=== PATIENT | female | born 2000 ===

== ENCOUNTER 2025-07-09 16:15 | Emergency (ER) | payer MEDICAID, SELFPAY ==
[2025-07-09 16:16] VITALS: BMI 26.6
[2025-07-09 16:42] VITALS: BP 133/85; PULSE 100; RESP 19; TEMP 37.5; O2SAT 99; BMI 24.6
--- NOTE | 2025-07-09 16:44 | XR_ITS ---
Examination: Pelvic ultrasound, transabdominal, complete Technique: Transabdominal ultrasound of the pelvis performed using grayscale imaging Date and time of exam: July 09, 2025, 1702 hours INDICATIONS: Lower abdominal pain beginning 3 days ago. FINDINGS: Uterus 7.4 cm endometrial stripe 0.3 cm No uterine mass or intrauterine gestation Right ovary 3.1 cm arterial flow Left ovary 3.0 cm arterial flow IMPRESSION: Negative study
--- NOTE | 2025-07-09 16:44 | XR_ITS ---
Examination: Abdomen sonogram, Limited Date and time of exam: July 09, 2025, 1651 hours INDICATIONS: Lower abdominal pain pelvic pain beginning 3 days ago Technique: Real-time burnette scale transabdominal sonographic images of the upper abdomen obtained. Findings: Normal gallbladder Normal common bile duct 0.3 cm Pancreatic head 1.4 cm Liver 17.9 cm fatty infiltration Normal hepatopetal portal venous flow Patent IVC IMPRESSION: Normal gallbladder Normal common bile duct Mild to moderate hepatomegaly
--- NOTE | 2025-07-09 16:45 | PD.EDRME ---
Rapid Medical Screening Exam RME Arrival date/time: 07/09/25 16:15 24-year-old female presents to the Emergency Department of complaint of right upper quadrant abdominal pain and pelvic pain Chief Complaint: Abdominal Pain Vital signs: Vital Signs Temperature 99.5 F 07/09/25 16:42 Pulse Rate 100 07/09/25 16:42 Respiratory Rate 19 07/09/25 16:42 Blood Pressure 133/85 H 07/09/25 16:42 Pulse Oximetry (%) 99 07/09/25 16:42 Oxygen Delivery Method Room Air 07/09/25 16:42 Vital signs reviewed by provider: Yes Exam: On exam well-appearing does not appear ill or toxic patient does have pain in her abdomen Clinical Impression: Lab work and imaging ordered
[2025-07-09 17:28] LABS: Collection Type, Urine Clean Catch; RBC,Urine 0 /hpf (0-3)
[2025-07-09 17:33] LABS: Basophils # (Auto) 0.0 Thou/mm3 (0.0-0.2); Basophils % (Auto) 0 % (0-2.5); Eosinophils # (Auto) 0.1 Thou/mm3 (0.0-0.5); Eosinophils % (Auto) 1 % (0-10); Hematocrit 39.7 % (36.0-46.0); Hemoglobin 12.9 g/dL (12.0-16.0); Immature Granulocytes Auto 0.04 Thou/mm3 (0.00-0.00); Lymphocytes # (Auto) 1.7 Thou/mm3 (1.0-4.8); Lymphocytes % (Auto) 24 % (10-50); Mean Corpuscular HGB Conc 32.5 g/dl (31.0-37.0); Mean Corpuscular Hemoglobin 27.9 pg (25.0-35.0); Mean Corpuscular Volume 86 fL (80-100); Monocytes # (Auto) 0.6 Thou/mm3 (0.0-0.8); Monocytes % (Auto) 9 % (0-12); Neutrophils # (Auto) 4.6 Thou/mm3 (1.8-7.7); Neutrophils % (Auto) 65 % (37-80); Nucleated Red Blood Cell # 0.00 Thou/mm3 (0.00-0.00); Nucleated Red Blood Cell % 0 /100 WBC (0); Platelet Count 203 Thou/mm3 (140-440); RDW Standard Deviation 42.9 fL (36.4-46.3); Red Blood Count 4.63 Miln/mm3 (4.00-5.20); White Blood Count 7.1 Thou/mm3 (3.6-11.0)
[2025-07-09 17:34] LABS: Bilirubin,Urine Negative (Negative); Blood,Urine 1+ (Negative); Clarity,Urine Turbid (Clear/Hazy); Color,Urine Yellow (Lt Yel-Yel); Culture Indicated,Urine Not Indicated; Glucose, Urine Negative (Negative); Ketones,Urine Negative (Negative); Leukocyte Esterase,Urine Negative (Negative); Nitrite,Urine Negative (Negative); PH,Urine 6.0 (5.0-7.0); Protein,Urine 1+ (Neg - Trace); Specific Gravity,Urine 1.032 (1.001-1.035); Squamous Epithelial Cell,Urine < 1 /hpf (0-5); Urobilinogen,Urine Negative mg/dL (0.0-1.0); WBC,Urine < 1 /hpf (0-5)
[2025-07-09 17:36] LABS: HCG Qualitative,Urine Negative
[2025-07-09 18:02] LABS: Alanine Aminotransferase 9 U/L (10-49); Albumin, Serum 4.7 gm/dL (3.5-5.0); Albumin/Globulin Ratio 1.5 (1.2-2.2); Alkaline Phosphatase 89 U/L (46-116); Anion Gap 9 (7-16); Aspartate Amino Transferase 16 U/L (0-34); BUN/Creatinine Ratio 13 Ratio (12-20); Bilirubin,Total 0.3 mg/dL (0.3-1.2); Blood Urea Nitrogen 8 mg/dL (9-23); Calcium 9.3 mg/dL (8.3-10.6); Calcium (Corrected) 9.3 mg/dL (8.5-10.1); Carbon Dioxide 29.8 mMol/L (20.0-31.0); Chloride 104 mMol/L (98-107); Creatinine (Component) 0.6 mg/dL (0.6-1.3); Estimated Creatinine Clearance 122.7 mL/min (>60); Globulin 3.1 gm/dL (2.3-3.5); Glucose 93 mg/dL (74-106); Lipase 30 U/L (12-53); Osmolality,Calculated 283 (275-295); Potassium 4.0 mMol/L (3.4-5.1); Sodium 143 mMol/L (136-145); Total Protein 7.8 gm/dL (5.7-8.2); eGFR > 60 See Note
[2025-07-09] MEDS: ACETAMINOPHEN 500 MG TABLET 1000 MG PO (18:06)
--- NOTE | 2025-07-09 18:52 | XR_ITS ---
Examination: CT abdomen with intravenous contrast CT pelvis with intravenous contrast 2-D coronal reconstructions 2-D sagittal reconstructions Date and time of exam: July 09, 2025, 2100 hours INDICATIONS: Right flank pain and cramping beginning 3 days ago. CTDI: vol (mGy) 8.51 DLP: (mGycm) 399 Technique: Multiple axial sections of the abdomen and pelvis have been obtained. 64 slice high-resolution scanner used. 3 mm axial sections have been obtained, post intravenous injection 60 cc [id number] 2-D sagittal, coronal reconstructions obtained. Low dose protocols were performed. One or more of the following dose reduction techniques were used; automated exposure control, adjustment of the mA and/or KV according to patient size, use of iterative reconstruction technique. Findings: No focal liver or splenic lesions No gallstones No pancreatic or adrenal mass No renal or ureteral calculi, no hydronephrosis Inflammatory change about the entire right and transverse colon No obstruction Appendix appears normal No bowel obstruction or diverticulitis No pelvic mass Bladder intact Osseous structures intact IMPRESSION: No renal or ureteral calculi, no hydronephrosis No CT findings of appendicitis Severe nonspecific colitis pattern involving right and transverse colon, differential would include ulcerative colitis, Crohn's disease
--- NOTE | 2025-07-09 18:54 | EKG_ITS ---
[facility] Test Date: 2025-07-09 Pat Name: JEFFREY MATHEW Department: Room: - Gender: Female Correctional Counselor: : 2000 Requested By: Christie Aaron Order Number: [id number] Reading MD: Christie Aaron Measurements Intervals Rule Rate: 89 P: 65 VT: 148 QRS: 49 QRSD: 82 T: 36 QT: 355 QTc: 433 Interpretive Statements SINUS RHYTHM No previous ECG available for comparison /store/S0/[id number]/ecg/[id number].pdf
[2025-07-09 18:56] VITALS: BP 121/83; PULSE 78; RESP 18; TEMP 36.9; O2SAT 98
[2025-07-09 19:22] VITALS: BP 125/75; PULSE 91; RESP 19; TEMP 36.9; O2SAT 100
[2025-07-09] MEDS: PIPER/TAZO INJ 4.5 GM in SODIUM CHLORIDE 0.9% (POP) 100 ML IV (21:23)
--- NOTE | 2025-07-09 22:09 | EDNOTE_ITS ---
ED Abdominal Pain RME/HPI General Chief Complaint: Abdominal Pain Stated complaint: ABD PAIN/CRAMPING X 3DAYS WITH NAUSEA Time seen by provider: 07/09/25 17:53 Arrival date/time: 07/09/25 16:15 RME / HPI RME / HPI narrative: 24-year-old female with no significant past medical history presents emergency room with 2 days of abdominal pain. Her pain is located in on the right side of her abdomen, both upper and lower quadrant associated with an episode of diarrhea this morning and nausea but no vomiting. She denied having headaches, fever, chills, chest pain, shortness of breath, vomiting, or urinary symptoms. On presentation vitals were unremarkable. Labs were also unremarkable including normal hemoglobin, no leukocytosis, normal renal function, normal liver panel, and signs of UTI on UA. Beta-hCG was negative. Pelvic ultrasound unremarkable. Abdominal ultrasound showed fatty liver but no gallbladder or CBD pathology. On exam she had palpitation in the right lower quadrant prompting a CT scan to rule out acute appendicitis. CT scan was negative for appendicitis but showed diffuse colitis, suggestive of chronic disease versus ulcer colitis. She was given a dose of TYLENOL with improvement in her pain. Given the findings, I don't feel she is needs hospital admission. Will be discharging home with TYLENOL PRN for pain. Also provided clear instructions with food map and foods to avoid. I had highly recommended close follow-up with GI for workup for inflammatory bowel disease including colonoscopy. Patient understands and agreed to the treatment plan. Recommended return to the ED if symptoms worsen or persist or new symptoms develop including worsening diarrhea, blood in the stool, dark stool, nausea or vomiting, fever or chills. Exam: On exam well-appearing does not appear ill or toxic patient does have pain in her abdomen Impression: Lab work and imaging ordered Related Data Home Medications ?Medication ?Instructions ?Recorded ?Confirmed vit no.95-ferrous 1 tab PO QDAY 01/08/2312/08 fumarate 28 mg-folic acid 800 mcg tablet () Previous Rx's ?Medication ?Instructions ?Recorded ibuprofen 800 mg tablet 800 mg PO Q6H PRN pain #120 tabs 12/27/23 lanolin 50 % topical ointment 1 applic topical TID PRN skin 12/27/23 irritation #15 tubes acetaminophen 650 mg 650 mg PO Q8H PRN fever or p ain 07/09/25 tablet,extended release (Tylenol 8 #60 tabs Hour) Allergies Allergy/AdvReac Type Severity Reaction Status Date / Time No Known Allergies Allergy Verified 07/09/25 16:19 ED Exam Narrative Physical exam: GENERAL * Normal appearing female, in mild distress secodnary to pain. HEENT * NCAT.?FRENCH. Oral mucosa is moist. Patent Nares NECK * Supple, nontender, no JVD. CHEST * RRR, no m/g/r * CTAB, no w/r/r, symmetrical expansion. ABDOMEN * Soft, flat, tender to palpation in RLQ and RUQ. No guarding/rebound tenderness/masses. * Bowel sounds presents EXTREMITIES * No edema/cyanosis.? SKIN * Warm and dry, no jaundice/rashes. NEUROMUSCULAR * No lumbar or midline, no CVA, no paraspinal muscle spasm or tenderness. * Moves all 4 extremities well, with full ROM and good CSM. * LAWLER x4, CN II-XII grossly intact. * No focal neurologic deficits. PSYCHIATRY * Normal mood and affect, cooperative, no SI or HI or hallucinations. Course Quality Measures none Orders Category Date Time Status CT Screening NOW Care 07/09/25 18:52 Completed EKG (ED ONLY) *Do not use* NOW Care 07/09/25 18:54 Completed Insert IV NOW Care 07/09/25 19:[address] abdomen pelvis w con Stat Exams 07/09/25 18:52 Completed EKG (ED Only) Stat Exams 07/09/25 18:54 Ordered US gall bladder Stat Exams 07/09/25 16:44 Completed US pelvic complete Stat Exams 07/09/25 16:44 Completed Blood Culture (Lab) Stat Lab 07/09/25 21:55 Received CBC Stat Lab 07/09/25 17:20 Completed Comprehensive Metabolic Panel Stat Lab 07/09/25 17:20 Completed HCG Qualitative,Urine Stat Lab 07/09/25 17:21 Completed Lipase Stat Lab 07/09/25 17:20 Completed UA, C/S IF [Urinalysis, C/S if Indicated] Stat Lab 07/09/25 17:21 Completed Acetaminophen Tab [Tylenol ES Tab] Med 07/09/25 16:44 Discontinued 1,000 mg PO X1 ONE Morphine* Inj Med 07/09/25 18:52 Discontinued 4 mg IM X1 PRN Ondansetron Inj [Zofran Inj] Med 07/09/25 18:52 Discontinued 4 mg IVP X1 ONE Piper/Tazo Inj [Zosyn Inj] 4.5 gm Med 07/09/25 18:54 Discontinued Sodium Chloride 0.9% (Pop) [NS 0.9% mini bag] 100 ml IV X1 Vital Signs Vital signs: Vital Signs Temperature 99.5 F 07/09/25 16:42 Pulse Rate 100 07/09/25 16:42 Respiratory Rate 19 07/09/25 16:42 Blood Pressure 133/85 H 07/09/25 16:42 Pulse Oximetry (%) 99 07/09/25 16:42 Oxygen Delivery Method Room Air 07/09/25 16:42 Abdominal Pain MDM Patient data External records reviewed:: [facility] previous records Clinical information provided by:: family Social determinants that could affect healthcare access:: substance use Patient has the following chronic illnesses:: None How is presenting disease/condition affected by chronic disease/condition?: uneffected by Evaluation data The following diagnostics were reviewed and interpreted by me:: lab results and radiology exam(s) Lab and/or radiology exams considered but not ordered:: None Interpretation Summary: Diffuse colitis Medications / Prescriptions Medications or Prescriptions considered but not ordered:: None Medication administrations:: Medication Administration History Discontinued Medications Acetaminophen (Acetaminophen 500 Mg Tablet) 1,000 mg PO X1 ONE Stop: 07/09/25 16:45 Last Admin: 07/09/25 18:06 Dose: 1,000 mg Documented By: BD Piperacillin Sod/Tazobactam (Sod 4.5 gm/ Sodium Chloride) 100 mls @ 200 mls/hr IV X1 ONE; Protocol Stop: 07/09/25 19:23 Last Infusion: 07/09/25 22:30 Dose: Infused Documented By: Admin: 07/09/25 21:23 Dose: 200 mls/hr Documented By: DANIA Morphine Sulfate (Morphine Sulf Inj 4 Mg/Ml Vial) 4 mg IM X1 PRN PRN Reason: severe abd pain Stop: 07/14/25 18:51 Ondansetron HCl (Ondansetron Inj 2 Mg/Ml Inj 2 Ml) 4 mg IVP X1 ONE; Protocol Stop: 07/09/25 18:53 Last Admin: 07/09/25 20:58 Dose: Not Given Documented By: DANIA Non-Admin Reason: Change of Condition Consultations Consultation(s) initiated? (list below): No Diagnosis Differential diagnosis abdominal pain: abdominal pain Most likely diagnosis given after review of the tests above:: Colitis with possible IBD Admission Indicated Admission indicated?: not indicated Admission Request Was there a request for admission?: No Disposition Plan Disposition Plan: Discharge Discharge Attestation Discharge Attestation: The patient and all family members were given an opportunity to ask questions and understood the discharge instructions. Discharge instructions specifically effects, indications for sooner follow up or return to the emergency department, and the expected course of current diagnosis. Patient condition: Stable Discharge Plan Plan Patient Disposition: HOME (Self Care) Patient condition on transfer: Stable Health Concerns: * Follow-up with PCP within 1-2 weeks of discharge. * Your CT abdomen showed severe nonspecific colitis pattern involving right and transverse colon, differential would include ulcerative colitis, Crohn's disease. Pelvic ultrasound was unremarkable. Gallbladder scan showed fatty liver, normal gallbladder and bile duct. * Your lab workup was normal, including: normal WBC, hemoglobin, chemistry panel, and urinalysis. * You will need further evaluation to be done with GI, possible colonoscopy and further lab workup. Please discuss with your PCP for referral to see GI as soon as possible. * Take TYLENOL as needed for pain, do not exceed more than 3 pills daily. * Return to the ED if you have worsening symptoms including worsening abdominal pain, diarrhea, bloody stool, or dark stool, nausea or vomiting, fever or chills. * Follow * Continue taking medications as prescribed below. * Return to Emergency Room if symptoms persist, worsen, or new symptoms develop. Prescriptions/Referrals Prescriptions/Med Rec: New acetaminophen [Tylenol 8 Hour] 650 mg tablet extended release 650 mg PO Q8H PRN (Reason: fever or pain) Qty: 60 0RF Discontinued docusate sodium [Colace] 100 mg capsule 100 mg PO BID Qty: 60 0RF No Action PNV no.95-ferrous fumarate-FA [] 28 mg iron- 800 mcg Tablet 1 tab PO QDAY ibuprofen 800 mg tablet 800 mg PO Q6H MDD 4 PRN (Reason: pain) Qty: 120 0RF lanolin 50 % ointment 1 applic topical TID PRN (Reason: skin irritation) Qty: 15 0RF Referrals: No Primary/Family,Physician [Primary Care Provider] - In 1 week Problem List Clinical Impression: Colitis Patient/Caregiver Discharge Instructions Education Materials: Colitis Ulcerative Lifestyle, Anatomy Digestive System Ch Print Language: Frisian Stand Alone Forms: Amanda Award Info., Patient Portal Info Letter
[2025-07-09 22:28] VITALS: BP 116/79; PULSE 98; RESP 18; TEMP 36.8; O2SAT 98
== END 2025-07-09 23:15 | disposition home or self-care (01) ==
PROVIDERS: Nurse Practitioner Primary Care; Emergency Provider Emergency Medicine
DX: K52.9 Noninfective gastroenteritis and colitis, unspecified (principal); K76.0 Fatty (change of) liver, not elsewhere classified; R10.30 Lower abdominal pain, unspecified; R10.A1 Flank pain, right side
CPT/HCPCS: 36415; 74177; 76705; 76856; 80053; 81001; 81025; 83690; 85025; 85652; 86140; 87040; 93005; 96365; 99284; A4649; J2543; J3490; Q9967; A9270